=== PATIENT | male | born 1975 | race Caucasian/White ===

== ENCOUNTER → 2016-10-07 | Day surgery (SDC) | payer OTHER ==
[2016-09-27 13:02] VITALS: Ht 171.5 cm; Wt 79.5 kg
[~2016-10-07] VITALS: Ht 171.5 cm; Wt 79.5 kg
[~2016-10-07] MED LIST: AMPH10TA2 PO; ASTN; ATOR-22 PO; ATROPINE SULFATE 0.1 MG/ML 5ML SYR IV PRN; ATV/1 PO; BACL10TA PO; BUPIVACAINE/EPINEPHRINE 0.25% 1:200,000 30 ML VIAL ONE; CALC-51 PO; CEFAZOLIN 2000 MG/60 ML D5W IV SCH; CLON1TAB3 PO; COEN100C7 PO; EpINEphrine INJ 1MG/ML AMP 1 MG/ML AMP ONE; FENTANYL CITRATE INJ 50 MCG/1 ML 2 ML VIAL IV PRN; FENTANYL CITRATE INJ 50 MCG/1 ML 2 ML VIAL ONE; FINA1TAB62 PO; FLUT1SPR12 NAE; FLUT45AE IN; GUAN1TAB12 PO; GUAN2TAB8 PO; HYDR12.55 PO; KETO10TA PO; KETOROLAC TROMETHAMINE 30 MG/ML VIAL IV. PRN; LABETALOL HCL IV 5 MG/ML 20ML IV PRN; LACTATED RINGER'S 1000ML 1,000 ML IV SCH; LIDOCAINE HCL 2% 2 ML VIAL (20MG/ML) ONE; LISI-725 PO; MIDAZOLAM HCL 1 MG/ML 2ML VIAL ONE; MONT1TAB3 PO; MRLP17X PO; MULT-506 PO; OMEG10007 PO; ONDANSETRON INJ 2 MG/ML 2 ML VIAL IV PRN; ONDANSETRON INJ 2 MG/ML 2 ML VIAL ONE; OXYC-57 PO; OXYCODONE/ACETAMINOPHEN 5-325 TAB PO PRN; PANT40TA PO; PROPOFOL IV EMULSION 10 MG/ML 20 ML VIAL IV ONE; RANI300T2 PO; ROPIVACAINE 0.5% 5 MG/ML 30 ML VIAL ONE; SODIUM CHLORIDE 0.9% 1000ML 1,000 ML IV SCH; VNTHFA/IN INH
--- NOTE | 2016-10-07 10:40 | History & Physical Bridge - [place] ---
H&P Re-Evaluation Bridge Note: I have examined the patient, reviewed the History & Physical and in the interval since the performance of the History & Physical I have noted the following changes of clinical significance: No changes noted
--- NOTE | 2016-10-07 13:50 | [facility] Post Operative Brief Note ---
Immediate Operative Summary Operative Date Oct 07, 2016. Pre-Operative Diagnosis Biceps Tendonitis Right Shoulder Post-Operative Diagnosis Same Procedure(s) Performed Right Shoulder Arthroscopy, Acromioplasty, Open Biceps Tenodesis Surgeon Dr. Leal Compliance Nurse Surgeon(s) None Estimated Blood Loss 5 mL Findings as above Specimens None Complication(s) None Disposition Recovery Room / PACU
--- NOTE | 2016-10-07 14:04 | Discharge Instructions-SurgCtr ---
Discharge Instructions Date of Service Oct 07, 2016. Visit Reason for Visit: Right Biceps Tendinitis, Joint Pain Discharge Discharge Diagnosis / Problem: SAME ABOVE Discharge Goals Goal(s): Decrease discomfort, Improve function Medications Stopped Medications Name(s): no blood thinners Activity Recommendations Activity Limitations: as noted below Lifting Limitations: until after follow-up appointment Exercise/Sports Limitations: until after follow-up appointment Driving or Machine Use: resume 1 day after discharge Anesthesia . Post Anesthesia Instructions: If you have had General Anesthesia or IV Sedation: * Do not drive today. * Resume driving when surgeon permits. * Do not make important decisions or sign legal documents today. * Call surgeon for: 1. Temperature elevations greater than 101 degrees F. 2. Uncontrollable pain. 3. Excessive bleeding. 4. Persistent nausea and vomiting. 5. Medication intolerance (nausea, vomiting or rash). * For nausea and vomiting use only clear liquids such as: tea, soda, bouillon until nausea subsides, then gradually increase diet as tolerated. * If you have any concerns or questions, call your surgeon's office. If physician is unavailable and it is an emergency, call 911 or go to the nearest emergency room. . Instructions / Follow-Up Instructions / Follow-Up MEDICATIONS: * Resume previous medications unless instructed otherwise by your surgeon. * Always take pain medication on a full stomach or with food to avoid upset stomach. * Do not drink alcohol or drive while taking narcotics. * Ibuprofen or Tylenol may be taken if narcotic not needed. SPECIAL CARE INSTRUCTIONS: __ None _X_ Keep extremity elevated and iced x 48 hours; apply ice 20-30 minutes 8-10 times/day. May remove at night. _X_ Sling (WEAR NEEDED FOR COMFORT) __24 hrs/day __ Remove at night __ Shoulder Immobilizer __ 24 hrs/day __ Remove at night _X_ Dressing __ Maintain until seen in office, may shower with plastic over site _X_ Remove dressings in 24-48 hours and then may shower _X_ Cover incisions with band-aids after showering _X_ Do not remove steri-strips (THEY MAY FALL OFF ON THEIR OWN) Call physician if chills or temperature rises above 102 degrees or pain unrelieved by prescribed pain medications at . . Diet Recommendations Home Diet: no limitations Fluid Restriction: None Procedures Procedures Performed: Right Shoulder Arthroscopy, Acromioplasty, Open Biceps Tenodesis Pending Studies Studies pending at discharge: no Work Instructions Return To Work: after follow-up Lifting Limitations: NO LIFTING WITH RIGHT ARM Medical Emergencies . Who to Call and When: Medical Emergencies: If at any time you feel your situation is an emergency, please call 911 immediately. . Non-Emergent Contact Non-Emergency issues call your: Primary Care Provider Call Non-Emergent contact if: you have a fever, temperature is above 101.5 . . "Provider Documentation" section prepared by Yohannes Nunes. .
[2016-10-07 14:52] VITALS: TEMP 36.4
--- NOTE | 2016-10-07 15:30 | Anesthesia Progress Nt - [facility] ---
Anesthesia Post Op Note Date & Time Oct 07, 2016 at 15:30 Vital Signs Pain Intensity: 0 Vital Signs Past 12 Hours Date Time Temp Pulse Resp B/P Pulse Ox O2 Delivery O2 Flow Rate FiO2 10/07/16 14:52 36.4 60 16 113/74 100 Room Air 10/07/16 14:41 36.3 10/07/16 14:36 64 13 98 10/07/16 14:36 65 13 10/07/16 14:35 105/71 10/07/16 14:31 70 15 10/07/16 14:31 72 15 99 10/07/16 14:30 106/72 10/07/16 14:26 66 14 10/07/16 14:26 63 14 94/73 98 10/07/16 14:21 68 10 10/07/16 14:21 67 10 99 10/07/16 14:20 112/81 10/07/16 14:20 Room Air 10/07/16 14:16 73 16 99 10/07/16 14:16 76 16 10/07/16 14:15 107/71 10/07/16 14:11 73 12 97 10/07/16 14:11 72 12 10/07/16 14:10 112/66 10/07/16 14:06 71 9 10/07/16 14:06 73 9 98 10/07/16 14:05 120/58 10/07/16 14:02 36.5 71 16 120/58 100 Diffusion Mask 5 10/07/16 12:29 60 19 100 10/07/16 12:29 60 10/07/16 12:24 61 15 100 10/07/16 12:24 61 10/07/16 12:23 58 10/07/16 12:23 59 17 100 10/07/16 12:18 59 10/07/16 12:18 59 0 98 10/07/16 10:14 36.8 68 20 119/74 98 Room Air Notes Mental Status: alert / awake / arousable, participated in evaluation Pt Amnestic to Procedure: Yes Nausea / Vomiting: adequately controlled Pain: adequately controlled Airway Patency, RR, SpO2: stable & adequate BP & HR: stable & adequate Hydration State: stable & adequate Anesthetic Complications: no major complications apparent
[2016-10-07 15:40] VITALS: BP 108/73; PULSE 58; O2SAT 100
--- NOTE | 2016-10-07 15:48 | OPERATIVE REPORT ---
DATE OF OPERATION: 10/07/2016 PREOPERATIVE DIAGNOSIS: External impingement, biceps tendinopathy of the right shoulder. POSTOPERATIVE DIAGNOSIS: External impingement, biceps tendinopathy and osteoarthritis of the right shoulder. PROCEDURE: Right shoulder diagnostic arthroscopy with extensive debridement, acromioplasty and open subpectoral biceps tenodesis. SURGEON: Dr. Lakhwinder Leal. DIRECTOR OF DIGITAL TECHNOLOGY: Jamie Nunes PA-C, whose assistance was necessary for positioning the arm and helping with instrumentation. ANESTHESIA: General with a right interscalene nerve block. COMPLICATIONS: None. CONDITION: Stable to PACU. INDICATIONS: Kirit is a pleasant 41-year-old male who has been dealing with a several year history of right shoulder pain. Most of his pain is located in the biceps region in the subacromial space. I have given him injections which helped briefly but unfortunately his symptoms continue to return. MRI showed external impingement, biceps tendinopathy and some mild osteoarthritis. After failing conservative treatment, he elected to undergo arthroscopy. DESCRIPTION OF PROCEDURE: On 10/07/2016, he arrived at [facility] for the above procedure. He was seen in the preoperative holding area and the operative extremity was identified and signed. He was given a preoperative antibiotic and a right interscalene nerve block. He was taken back to the operating room, laid on the table in supine position and put under general anesthesia. He was then put into the beachchair position. The right shoulder was prepped and draped in sterile fashion. Time-out was done and the patient and operative extremity was properly identified. A scope was introduced in the posterior portal. Diagnostic arthroscopy showed grade 4 chondral changes off the anterior and anterior inferior glenoid. There was some grade 4 chondral changes off the posterior humeral head. This contacted the articular side of the glenoid with the arm in full external rotation but in the neutral position. It appeared he had good cartilage on the humeral head. There was a little fraying of the undersurface of the rotator cuff. The biceps tendon was red on the dorsal aspect. There was a little degenerative labral fraying around the arthritic regions. An anterior portal was made. A shaver was used to do a debridement of the intraarticular structures including the labrum. The biceps tendon was pulled into the joint and there was redness on the dorsal aspect. The biceps tendon was then arthroscopically tenotomized. The scope was then put into the subacromial space. A lateral portal was made. A shaver was used to do a complete subacromial and subdeltoid bursectomy. An ablator was used to tease the coracoacromial ligament off the undersurface of the acromion and a 5-0 esa was used to complete an acromioplasty of a Bigliani type 2 acromion. A shaver was used to remove any excess debris and the bursal side of the rotator cuff was examined extensively without evidence of tear. Arthroscopic instruments removed from the shoulder. Attention was turned to an open biceps tenodesis. A small incision was made over the inferior border of the pec major. Dissection was taken down through the fascia and the long head of the biceps tendon was delivered out of the wound. The tendon was then whip stitched at the anticipated level of tenodesis and the remainder of the tendon was discarded. A 6 mm hole was drilled in the bicipital groove and the biceps tendon was tenodesed with an Arthrex biceps button that was passed through the posterior cortex in a tension slide technique to deliver the biceps tendon into the 6 mm hole. This gave good fixation. The wound was then irrigated and closed with 3-0 Vicryl and running 3-0 Monocryl. Steri-strips were placed. Portal sites were closed with 3-0 nylon. He was then placed in a soft dressing and a regular arm sling. He was then extubated, transferred to a [facility] and taken to the postanesthesia care unit in stable condition. He tolerated the procedure well. I attest to the content of the Intraoperative Record and any orders documented therein. Any exceptio ns are noted below.
== END | disposition home or self-care (01) ==
LOC: X.SURG 09:51
PROVIDERS: ATTEND Orthopaedic Surgery
DX: M75.41 Impingement syndrome of right shoulder (principal); M75.22 Bicipital tendinitis, left shoulder; M19.011 Primary osteoarthritis, right shoulder; J45.909 Unspecified asthma, uncomplicated; G47.33 Obstructive sleep apnea (adult) (pediatric); F41.9 Anxiety disorder, unspecified; F32.9 Major depressive disorder, single episode, unspecified; Z68.27 Body mass index [BMI] 27.0-27.9, adult; Z98.890 Other specified postprocedural states

== ENCOUNTER → 2017-01-03 | Outpatient (CLI) | payer OTHER ==
[~2017-01-03] MED LIST changes: -ATROPINE SULFATE 0.1 MG/ML 5ML SYR IV PRN; -BUPIVACAINE/EPINEPHRINE 0.25% 1:200,000 30 ML VIAL ONE; -CEFAZOLIN 2000 MG/60 ML D5W IV SCH; -EpINEphrine INJ 1MG/ML AMP 1 MG/ML AMP ONE; -FENTANYL CITRATE INJ 50 MCG/1 ML 2 ML VIAL IV PRN; -FENTANYL CITRATE INJ 50 MCG/1 ML 2 ML VIAL ONE; +GADAVIST IV PRN; -KETOROLAC TROMETHAMINE 30 MG/ML VIAL IV. PRN; -LABETALOL HCL IV 5 MG/ML 20ML IV PRN; -LACTATED RINGER'S 1000ML 1,000 ML IV SCH; -LIDOCAINE HCL 2% 2 ML VIAL (20MG/ML) ONE; -MIDAZOLAM HCL 1 MG/ML 2ML VIAL ONE; -ONDANSETRON INJ 2 MG/ML 2 ML VIAL IV PRN; -ONDANSETRON INJ 2 MG/ML 2 ML VIAL ONE; -OXYCODONE/ACETAMINOPHEN 5-325 TAB PO PRN; -PROPOFOL IV EMULSION 10 MG/ML 20 ML VIAL IV ONE; -ROPIVACAINE 0.5% 5 MG/ML 30 ML VIAL ONE; -SODIUM CHLORIDE 0.9% 1000ML 1,000 ML IV SCH
--- NOTE | 2017-01-03 14:15 | DIAGNOSTIC IMAGING REPORT ---
BRAIN COMBO HISTORY: 41 years-old Male COGNITIVE IMPAIRMENT,DISSINESS,DYSKINESIA,ESPINOSA,TARDIVE DYSTONI COMPARISON: Brain MRI 02/10/2010 TECHNIQUE: Multiplanar multisequence MRI of the brain was obtained both with and without the use of 8 mL Gadavist. FINDINGS: There is no restricted diffusion to suggest acute ischemia. The midline structures including the corpus callosum, brainstem, optic chiasm, pituitary gland, infundibulum and pineal gland appear unremarkable. There is no cerebellar tonsillar herniation, however the cerebellar tonsils are mildly low-lying. There is nonspecific mild heterogeneity of the marrow within the clivus which is unchanged from 02/10/2010, likely incidental. There is no acute intracranial hemorrhage, midline shift, hydrocephalus, abnormal extra-axial collections or intracranial mass. Signal within the bilateral medial temporal lobes also appears normal. Flow voids at the level skull base appear patent. No abnormal intra-axial or extra-axial enhancement is identified. No evidence of cortical dysplasia. Venous sinuses appear patent. There is mild polypoid mucosal thickening of the inferior right maxillary sinus, 1.5 cm. Mild mucosal thickening is also seen within the left maxillary sinus and bilateral ethmoid sinuses. IMPRESSION: 1. No acute intracranial abnormality. No evidence of abnormal enhancement. 2. Mild maxillary and ethmoid sinus disease. The above report was generated using voice recognition software. It may contain grammatical, syntax or spelling errors. Electronically signed by: Jorge Lange M.D. 01/03/2017 2:13 PM Dictated Date/Time: 01/03/2017 2:06 PM
== END | disposition home or self-care (01) ==
LOC: C.MRIBC 12:52
PROVIDERS: ATTEND Psychiatry & Neurology Neurology
DX: R42 Dizziness and giddiness (principal); G24.01 Drug induced subacute dyskinesia; G31.84 Mild cognitive impairment of uncertain or unknown etiology